=== PATIENT | male | born 1965 | race Caucasian/White ===

== ENCOUNTER 2021-02-24 06:32 | Emergency (ER) | payer BC, SELFPAY ==
[2021-02-24 06:46] VITALS: BP 144/97; PULSE 94; RESP 18; TEMP 37; O2SAT 95; BMI 30.8
[2021-02-24 06:56] LABS: COVID-19 Test Positive (Negative); IDNOW Serial# 55D5AD1C
[2021-02-24 07:16] VITALS: O2SAT 97
--- NOTE | 2021-02-24 07:16 | ED_ITS ---
HPI - URI/Sore Throat General Chief Complaint: Upper Respiratory Symptoms Stated Complaint: COVID Symptoms, called ahead requesting test Time Seen by Provider: 02/24/21 06:47 History of Present Illness HPI Narrative: Patient is a 55-year-old male history of diabetes. Patient complaining of coughing upper respiratory symptoms. Positive exposure to COVID. Patient is a [employer] officer. Had his coronavirus vaccine, Madonna x2 doses greater than 2 weeks ago. Patient denies any fever chills. Positive generalized malaise. Symptoms been ongoing for approximately 24-48 hours. Related Data Allergies Allergy/AdvReac Type Severity Reaction Status Date / Time No Known Allergies Allergy Unverified 02/23/20 14:59 Review of Systems Review of Systems: Positive coughing upper respiratory symptoms. Positive generalized malaise Yes all other systems are reviewed and are negative [facility] Past Medical History Attestation statement: The following information was validated with the patient. Social History Social History Advance Directives: No Advance Directives Information Provided: Yes Physical Exam Vital Signs: Vital Signs: Last Vital Signs Temp 98.6 F 02/24/21 06:46 Pulse 94 02/24/21 06:46 Resp 18 02/24/21 06:46 BP 144/97 H 02/24/21 06:46 Pulse Ox 95 02/24/21 06:46 Body Mass Index 30.8 Appearance: Alert. Oriented X3. No acute distress. Eyes: Pupils equal, round and reactive to light. ENT: Pharynx normal. Neck: Normal inspection. Neck supple. No lymph nodes noted. No crepitus CVS: Normal heart rate and rhythm. Pulses normal. Normal S1 and S2 Respiratory: No respiratory distress. Breath sounds normal. No Wheezing. No rales Abdomen: Soft and nontender. No rigidity. No distention. good BS x4 Skin: Skin warm and dry. Normal skin color. Normal skin turgor. Extremities: No lower extremity edema. Neurovascular intact to all extremities. No Lacerations. No Rash Neuro: Oriented X 3. No motor deficit. No sensory deficit. Moving all extermities. No slurred speech MDM - URI/Sore Throat MDM Narrative Medical decision making narrative: Patient's O2 sats 98% on room air no distress. Lungs are clear. COVID test came back positive. Patient told to follow strict home quarantine for 1 week. Make sure patient has no fever for at least 24-48 hours before returning to work. Follow-up on an outpatient basis. In stable condition. Lab Data Labs: Lab Results 02/24/21 Range/Units 06:43 COVID-19 ([facility]) Positive A (Negative) COVID-19 Clin Com See Note Discharge Plan Discharge Clinical Impression: Upper respiratory infection, COVID-19 Patient Disposition: Home, Self-Care Instructions: Upper Respiratory Infection (ED) Referrals: Porfirio Arshad MD [Primary Care Provider] - 2 days (Please stay home quarantine until all symptoms has resolved. No fever for at least 24-48 hours. Stay at home for at least 1 week.) Stand Alone Forms: Work/School Release
== END 2021-02-24 08:01 | disposition home or self-care (01) ==
PROVIDERS: Emergency Provider Emergency Medicine Emergency Medical Services; PCP Internal Medicine
DX: U07.1 COVID-19 (principal); J06.9 Acute upper respiratory infection, unspecified; R05 Cough
CPT/HCPCS: 36415; 87635; 99283

== ENCOUNTER 2021-04-26 19:48 | Emergency (ER) | payer BC, SELFPAY ==
[2021-04-26 19:55] VITALS: BP 136/91; PULSE 83; RESP 18; TEMP 35.8; O2SAT 98; BMI 30.8
--- NOTE | 2021-04-26 20:58 | ED.ANIMALBIT ---
HPI - Animal Bite General Chief Complaint: Animal Bite Stated Complaint: dog bite in rt leg Time Seen by Provider: 04/26/21 20:57 Source: patient Mode of arrival: ambulatory Limitations: no limitations History of Present Illness HPI narrative: 56-year-old male presents to the ER for evaluation of some dog bite to the right lower extremity. 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 There was breakage of skin but no deep wounds. He is not up-to-date on his tetanus shot. He is ambulatory with no active bleeding on arrival. complaint: animal bite Onset (ago): minute(s) Animal: dog Description of animal: household pet (K9 police dog) and appeared well Mechanism: bite Location - Extremities: right: thigh and lower leg Pain description: dull Severity scale (1-10): 4 Context: provoked Associated symptoms: none Related Data Patient tetanus UTD: No Previous Rx's Medication Instructions Recorded amoxicillin 500 mg-potassium 1 tab PO Q12H #10 tab 04/26/21 clavulanate 125 mg tablet (Augmentin) ibuprofen 600 mg tablet 600 mg PO Q8H PRN #20 tab 04/26/21 Allergies Allergy/AdvReac Type Severity Reaction Status Date / Time No Known Allergies Allergy Unverified 02/23/20 14:59 Review of Systems Review of Systems: Constitutional: No Fever, No Chills Cardiovascular: No Chest Pain, No SOB Gastrointestinal: No Nausea, No Vomiting Musculoskeletal: No joint pain, No Myalgias Skin: + Skin Lesions, No rash Neuro: No Weakness, No Numbness Psych: No Anxiety/Panic, No Depression Heme/Lymph: + Bruising, No Lymphadenopathy PMFSH Past Medical History Medical History (Updated 04/26/21 @ 20:58 by SHERRIE Hanley) HTN (hypertension) Surgical History (Updated 04/26/21 @ 20:01 by Emilee Tilley) H/O shoulder surgery Social History Social History Advance Directives: No Advance Directives Information Provided: No Physical Exam Vital Signs: Vital Signs: Last Vital Signs Temp 96.5 F L 04/26/21 19:55 Pulse 83 04/26/21 19:55 Resp 18 04/26/21 19:55 BP 136/91 H 04/26/21 19:55 Pulse Ox 98 04/26/21 19:55 Body Mass Index 30.8 Appearance: Alert. Oriented X3. No acute distress. HEENT: normal inspection CVS: Normal heart rate and rhythm. Pulses normal. Respiratory: No respiratory distress. Speaking in complete sentences Skin: Skin warm and dry. Normal skin color. Normal skin turgor. No rashes. Extremities: Right medial ankle with superficial abrasions with surrounding ecchymosis. Right posterior thigh with multiple small superficial abrasions. Compartments are soft and compressible. No surrounding erythema or warmth. No active bleeding. Neuro: Oriented X 3. No motor deficit. No sensory deficit. Ambulatory Course Course Course Narrative: 56-year-old male present to the ER for evaluation with the superficial dog bites. Wounds have been cleaned with iodine and saline. Topical bacitracin has been applied. No need for wound repair or closure. Tdap given in prophylactic Augmentin prescribed. Wound care discussed with patient. Stable for discharge home with plan to follow up with [facility]. Discharge Plan Discharge Clinical Impression: Dog bite Qualifiers: Encounter type: initial encounter Qualified Code(s): W54.0XXA - Bitten by dog, initial encounter Patient Disposition: Home, Self-Care Instructions: Animal Bite (ED) Additional Instructions: Take the prescribed antibiotics to help prevent infection. Used topical bacitracin or Neosporin 2 times a day Keep clean and covered. Monitor for signs of infection including redness, warmth, drainage of pus. Use ice several times a day as needed for pain and discomfort. Take the prescribed ibuprofen as needed for pain. Follow-up with your doctor as needed. Prescriptions: New amoxicillin-pot clavulanate [Augmentin] 500-125 mg tablet 1 tab PO Q12H Qty: 10 RF: 0 ibuprofen 600 mg tablet 600 mg PO Q8H PRN (Reason: pain) Qty: 20 RF: 0 Referrals: [facility] [Provider Group] - 2 days Stand Alone Forms: Work/School Release
[2021-04-26] MEDS: Diphth,Pertus(ACell),Tet Adult 0.5 ML SYRINGE IM (21:15)
[2021-04-26] MEDS: Amoxicillin/Potassium Clav 500 MG TABLET PO (21:16)
== END 2021-04-26 21:25 | disposition home or self-care (01) ==
PROVIDERS: Emergency Provider Emergency Medicine Emergency Medical Services
DX: S90.571A Other superficial bite of ankle, right ankle, initial encounter (principal); S70.371A Other superficial bite of right thigh, initial encounter; W54.0XXA Bitten by dog, initial encounter; Y93.9 Activity, unspecified; Y92.019 Unspecified place in single-family (private) house as the place of occurrence of the external cause; Y99.9 Unspecified external cause status
CPT/HCPCS: 90471; 90715; 99283; 99284

== ENCOUNTER → 2021-04-29 08:05 | Outpatient (BNVA) | payer OTHER, SELFPAY | PROVIDERS: Visit Provider Internal Medicine | DX: S71.151A Open bite, right thigh, initial encounter (principal); W54.0XXA Bitten by dog, initial encounter | CPT/HCPCS: 99202 ==

== ENCOUNTER → 2021-05-06 07:49 | Outpatient (BNVA) | payer OTHER, SELFPAY | PROVIDERS: Visit Provider Internal Medicine | DX: S71.151A Open bite, right thigh, initial encounter (principal); S91.051A Open bite, right ankle, initial encounter; W54.0XXA Bitten by dog, initial encounter | CPT/HCPCS: 99213 ==

== ENCOUNTER → 2021-05-09 13:33 | Outpatient (BNVA) | payer OTHER, SELFPAY | PROVIDERS: Visit Provider Internal Medicine | DX: S81.851D Open bite, right lower leg, subsequent encounter (principal); W54.0XXD Bitten by dog, subsequent encounter | CPT/HCPCS: 99213 ==

== ENCOUNTER 2021-11-10 09:30 | Emergency (ER) | payer OTHER, SELFPAY ==
--- NOTE | ~2021-11-10 | XR_ITS ---
EXAMINATION: XR FOOT, LEFT CLINICAL INFORMATION: Left foot pain. Status post injury. COMPARISON: None TECHNIQUE: AP, lateral, and oblique views of the left foot. FINDINGS: The bones and soft tissues are normal. No fracture. Alignment is anatomic. Joint spaces are maintained. XR/XR foot LT min 3V IMPRESSION: Unremarkable left foot.
[2021-11-10 09:36] VITALS: BP 144/91; PULSE 73; RESP 16; TEMP 36.2; O2SAT 96; BMI 30.8
--- NOTE | 2021-11-10 09:57 | ED.LOWEXIN ---
HPI - Extremity Injury (Lower) General Chief Complaint: Extremity Injury, Lower Stated Complaint: L foot inj/work related Time Seen by Provider: 11/10/21 09:57 Source: patient Mode of arrival: ambulatory Limitations: no limitations History of Present Illness HPI Narrative: Patient presents emergency department for evaluation of a left foot injury. 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 It sudden onset pain to the midfoot, 3/10. Denies any numbness or tingling. Has full range of motion to the ankle, is able to move the toes. States that he has injured the foot in the past but does not believe that it has ever been broken. Reports that he has been able to walk on the foot without complication. Related Data Previous Rx's Medication Instructions Recorded amoxicillin 500 mg-potassium 1 tab PO Q12H #10 tab 04/26/21 clavulanate 125 mg tablet (Augmentin) ibuprofen 600 mg tablet 600 mg PO Q8H PRN #20 tab 04/26/21 Allergies Allergy/AdvReac Type Severity Reaction Status Date / Time No Known Allergies Allergy Unverified 02/23/20 14:59 Review of Systems Review of Systems: Musculoskeletal: Right foot pain Yes all other systems are reviewed and are negative [facility] Past Medical History Attestation statement: The following information was validated with the patient. Source: old records reviewed Medical History HTN (hypertension) Surgical History H/O shoulder surgery Social History Social History Advance Directives: No Advance Directives Information Provided: No Physical Exam Vital Signs: Vital Signs: Last Vital Signs Temp 97.1 F 11/10/21 09:36 Pulse 73 11/10/21 09:36 Resp 16 11/10/21 09:36 BP 144/91 H 11/10/21 09:36 Pulse Ox 96 11/10/21 09:36 BMI result Body Mass Index 30.8 Vital signs have been reviewed and appeared to be correct. Hypertension? Heart rate normal.? Respiration rate normal. Temperature normal.? Oxygen saturation normal. Appearance: Alert.?Oriented to person, place and time. No acute distress.?Normal affect. Eyes: Pupils equal, round and reactive to light.? ENT: Pharynx normal.?? Neck: Normal inspection.? Neck supple.?? CVS: Heart sounds normal. Normal heart rate and rhythm.? Pulses normal.?? Respiratory: No respiratory distress.? Lung sounds clear to auscultation bilaterally?? Abdomen: Soft and non-tender. Skin: Skin warm and dry.? Normal skin color.? Extremities: No lower extremity edema.? No calf ttp?left foot with no obvious deformity, swelling, erythema, palpable point tenderness over the dorsal midfoot. DP/PT pulse 2 +bilaterally. Neuro: Moves all extremities spontaneously. Sensation intact bilaterally. No motor deficits. Ambulates with normal steady gait. Course Course Course Narrative: Patient is a 56-year-old male with a past medical history of hypertension and diabetes presenting to emergency department for evaluation of left foot pain after work injury today. Pain 3/10, declines Tylenol or ibuprofen. No obvious deformities. Neurovascularly intact distally. Ambulatory with a steady gait. X-ray reveals no acute fracture dislocation. MDM - Extremity Injury (Lower) Medical Records Attestation: I reviewed the patient's medical records. Imaging Data XR left foot: Radiologist's impression: FINDINGS: The bones and soft tissues are normal. No fracture. Alignment is anatomic. Joint spaces are maintained.? XR/XR foot LT min 3V IMPRESSION: Unremarkable left foot. Discharge Plan Discharge Clinical Impression: Injury of foot, left Patient Disposition: Home, Self-Care Instructions: Crush Injury (ED) Additional Instructions: As we discussed the x-ray of your foot was normal. Please follow-up with [facility] tomorrow. Be sure to rest, apply ice, and elevate your leg when possible. You can take ibuprofen 200 mg, 3 tablets (600mg) every 6-8 hours as needed for pain, in addition to Tylenol 500 mg, 2 tablets (1,000mg) every 4-6 hours as needed for pain, but not to exceed 3 doses daily (3,000mg).? Prescriptions: No Action amoxicillin-pot clavulanate [Augmentin] 500-125 mg tablet 1 tab PO Q12H Qty: 10 0RF ibuprofen 600 mg tablet 600 mg PO Q8H PRN (Reason: pain) Qty: 20 0RF Interventions: ED Discharge Assessment Last Done: 11/10/21 10:41 Discharge Date/Time: 11/10/21 10:42
== END 2021-11-10 10:42 | disposition home or self-care (01) ==
PROVIDERS: Emergency Provider Student in an Organized Health Care Education/Training Program; PCP Internal Medicine
DX: S99.922A Unspecified injury of left foot, initial encounter (principal); W20.8XXA Other cause of strike by thrown, projected or falling object, initial encounter; Y93.89 Activity, other specified; Y92.9 Unspecified place or not applicable; Y99.0 Civilian activity done for income or pay
CPT/HCPCS: 73630; 99283

== ENCOUNTER → 2021-11-11 08:25 | Outpatient (BNVA) | payer OTHER, SELFPAY | PROVIDERS: PCP Internal Medicine; Visit Provider Physician Assistant Medical | DX: S90.32XA Contusion of left foot, initial encounter (principal); W22.8XXA Striking against or struck by other objects, initial encounter | CPT/HCPCS: 99202 ==

== ENCOUNTER → 2022-02-24 08:07 | Outpatient (BNVA) | payer OTHER, SELFPAY | PROVIDERS: PCP Internal Medicine; Visit Provider Internal Medicine | DX: F43.0 Acute stress reaction (principal) | CPT/HCPCS: 99202 ==

== ENCOUNTER → 2022-03-10 07:43 | Outpatient (BNVA) | payer OTHER, SELFPAY | PROVIDERS: PCP Internal Medicine; Visit Provider Internal Medicine | DX: F43.0 Acute stress reaction (principal) | CPT/HCPCS: 99213 ==

== ENCOUNTER → 2022-03-31 08:01 | Outpatient (BNVA) | payer OTHER, SELFPAY | PROVIDERS: PCP Internal Medicine; Visit Provider Internal Medicine | DX: F43.0 Acute stress reaction (principal) | CPT/HCPCS: 99213 ==

== ENCOUNTER → 2022-04-29 07:43 | Outpatient (BNVA) | payer OTHER, SELFPAY | PROVIDERS: PCP Internal Medicine; Visit Provider Internal Medicine | DX: F43.0 Acute stress reaction (principal) | CPT/HCPCS: 99213 ==

== ENCOUNTER → 2022-07-22 07:45 | Outpatient (BNVA) | payer OTHER, SELFPAY | PROVIDERS: PCP Internal Medicine; Visit Provider Internal Medicine | DX: Z02.89 Encounter for other administrative examinations (principal); F43.0 Acute stress reaction | CPT/HCPCS: 99213 ==